=== PATIENT | male | born 1985 | race American Indian/Alaskan Native ===

== ENCOUNTER 2016-07-14 13:48 | Emergency (ER) | payer SELFPAY ==
[2016-07-14 15:02] VITALS: BP 127/92
--- NOTE | 2016-07-14 17:36 | Emergency Department Report ---
ED ENT HPI - General Chief complaint: Sore Throat Stated complaint: PAIN/YEAST TONGUE AREA/EXHAUSTION Time Seen by Provider: 07/14/16 17:21 Source: patient Mode of arrival: Ambulatory Limitations: No Limitations - History of Present Illness Initial comments: PT states 1 - 1.5 years ago, he was dx with a fungal infection on his tongue. PT states he was dx by a military technology specialist. PT states the specialist gave him a list of foods that he needs to eat and that he needs to avoid to detox the fungus. PT states the foods that he was given to eat are expensive and that he is working but his is having a hard time affording the foods. PT states his tongue irritation has been worsening and sometimes he has sore throat. PT states he feels very fatigued and is looking to get on disability until the fungal infection clears up. PT states he has good oral hygiene and he uses a tongue mold polisher. PT denies any PMH. MD complaint: other (tongue irritation ) -: Gradual, year(s) Location: tongue Quality: other (irritated ) Improves with: none Worsens with: none - Related Data Previous Rx's Medication Instructions Recorded Last Taken Type Nystatin [Nystatin SUSP] 5 ml PO QID 7 Days 07/14/16 Unknown Rx Allergies Allergy/AdvReac Type Severity Reaction Status Date / Time No Known Allergies Allergy Unverified 07/14/16 14:54 ED Dental HPI - General Chief complaint: Sore Throat Stated complaint: PAIN/YEAST TONGUE AREA/EXHAUSTION Time Seen by Provider: 07/14/16 17:21 Source: patient Mode of arrival: Ambulatory Limitations: No Limitations - Related Data Previous Rx's Medication Instructions Recorded Last Taken Type Nystatin [Nystatin SUSP] 5 ml PO QID 7 Days 07/14/16 Unknown Rx Allergies Allergy/AdvReac Type Severity Reaction Status Date / Time No Known Allergies Allergy Unverified 07/14/16 14:54 ED Review of Systems ROS: Stated complaint: PAIN/YEAST TONGUE AREA/EXHAUSTION Other details as noted in HPI Comment: All other systems reviewed and negative Constitutional: other (fatigue ). denies: chills, fever ENT: as per HPI Gastrointestinal: denies: vomiting Skin: denies: rash ED Past Medical Hx - Past Medical History Previous Medical History?: No Hx Hypertension: No Hx Diabetes: No Hx of Cancer: No - Surgical History Past Surgical History?: No - Social History Smoking Status: Never Smoker Substance Use Type: None - Medications Home Medications: Home Medications Medication Instructions Recorded Confirmed Last Taken Type Nystatin [Nystatin SUSP] 5 ml PO QID 7 Days 07/14/16 Unknown Rx ED Physical Exam - General Limitations: No Limitations General appearance: alert, in no apparent distress - Head Head exam: Present: atraumatic, normocephalic - Eye Eye exam: Present: normal appearance. Absent: conjunctival injection - ENT ENT exam: Present: normal orophraynx, mucous membranes moist, TM's normal bilaterally, normal external ear exam - Expanded ENT Exam Expanded Mouth exam: Present: other (glossitis ). Absent: drooling, trismus, tongue elevation Teeth exam: Present: normal inspection. Absent: gingival enlargement Throat exam: Positive: normal inspection, tonsillar erythema - Neck Neck exam: Present: normal inspection, full ROM. Absent: tenderness, meningismus, lymphadenopathy - Respiratory Respiratory exam: Absent: respiratory distress, wheezes - Extremities Exam Extremities exam: Present: normal inspection, full ROM - Back Exam Back exam: Present: normal inspection, full ROM - Neurological Exam Neurological exam: Present: alert, oriented X3, normal gait - Psychiatric Psychiatric exam: Present: normal affect, normal mood - Skin Skin exam: Present: warm, dry, intact, normal color ED Course Vital Signs 07/14/16 14:54 Temperature 98.4 F Pulse Rate 58 L Respiratory 18 Rate Blood Pressure 127/92 O2 Sat by Pulse 100 Oximetry - Pulse Oximetry Interpretation Digit-Finger Initial Pulse Oximetry Readin Actions Taken: none ED Medical Decision Making - Differential Diagnosis thrush, glositis Critical care attestation.: If time is entered above; I have spent that time in minutes in the direct care of this critically ill patient, excluding procedure time. ED Disposition Clinical Impression: Glossitis Disposition: DISCHARGED TO HOME OR SELFCARE Is pt being admited?: No Does the pt Need Aspirin: No Condition: Stable Instructions: Oral Candidiasis (ED) Additional Instructions: take a probiotic daily Referrals: PRIMARY CARE,MD [Primary Care Provider] - 3-5 Days [facility] [Outside] - 3-5 Days Forms: Work/School Release Form(ED) Time of Disposition: 17:45
== END 2016-07-14 17:54 | disposition home or self-care (01) ==
LOC: ED 13:48
DX: K14.0 Glossitis (principal); R53.83 Other fatigue
CPT/HCPCS: 99282

== ENCOUNTER 2017-09-16 17:41 | Emergency (ER) | payer SELFPAY ==
--- NOTE | 2017-09-16 21:38 | Emergency Department Report ---
- General Chief complaint: Skin/Abscess/Foreign Body Stated complaint: INSECT BITES Time Seen by Provider: 09/16/17 21:17 Source: patient Mode of arrival: Ambulatory Limitations: No Limitations - History of Present Illness Initial comments: This is a 32-year-old male nontoxic, well nourished in appearance, no acute signs of distress presents to the ED with c/o of redness and pain to right middle and index finger x1 month. Patient stated that he believes he was bitten by a spider but has not seen one. Patient denies any pus, drainage, fever, chills, joint redness, joint swelling, chest pain, shortness of breath, headache, stiff neck. Patient denies any allergies or significant past medical history. Denies any direct trauma. MD complaint: insect bite/sting -: month(s) (1) Severity: mild Severity scale (0 -10): 8 Quality: aching Consistency: constant Improves with: none Worsens with: none Associated symptoms: denies other symptoms Treatments Prior to Arrival: none - Related Data Previous Rx's Medication Instructions Recorded Last Taken Type Nystatin [Nystatin SUSP] 5 ml PO QID 7 Days ml 07/14/16 Unknown Rx Sulfamethoxazole/Trimethoprim 1 each PO BID #14 tablet 09/16/17 Unknown Rx [Bactrim DS TAB] Allergies Allergy/AdvReac Type Severity Reaction Status Date / Time No Known Allergies Allergy Verified 09/16/17 18:55 Abscess Boil HPI - HPI Chief Complaint: Skin/Abscess/Foreign Body Stated Complaint: INSECT BITES Time Seen by Provider: 09/16/17 21:17 Home Medications: Previous Rx's Medication Instructions Recorded Last Taken Type Nystatin [Nystatin SUSP] 5 ml PO QID 7 Days ml 07/14/16 Unknown Rx Sulfamethoxazole/Trimethoprim 1 each PO BID #14 tablet 09/16/17 Unknown Rx [Bactrim DS TAB] Allergies/Adverse Reactions: Allergies Allergy/AdvReac Type Severity Reaction Status Date / Time No Known Allergies Allergy Verified 09/16/17 18:55 ED Review of Systems ROS: Stated complaint: INSECT BITES Other details as noted in HPI Constitutional: denies: chills, fever Eyes: denies: eye pain, eye discharge, vision change ENT: denies: ear pain, throat pain Respiratory: denies: cough, shortness of breath, wheezing Cardiovascular: denies: chest pain, palpitations Endocrine: no symptoms reported Gastrointestinal: denies: abdominal pain, nausea, diarrhea Genitourinary: denies: urgency, dysuria Musculoskeletal: denies: back pain, joint swelling, arthralgia Skin: denies: rash, lesions Neurological: denies: headache, weakness, paresthesias Psychiatric: denies: anxiety, depression Hematological/Lymphatic: denies: easy bleeding, easy bruising ED Past Medical Hx - Past Medical History Hx Hypertension: No Hx Diabetes: No - Social History Smoking Status: Never Smoker Substance Use Type: None - Medications Home Medications: Home Medications Medication Instructions Recorded Confirmed Last Taken Type Nystatin [Nystatin SUSP] 5 ml PO QID 7 Days ml 07/14/16 Unknown Rx Sulfamethoxazole/Trimethoprim 1 each PO BID #14 tablet 09/16/17 Unknown Rx [Bactrim DS TAB] ED Physical Exam - General Limitations: No Limitations General appearance: alert, in no apparent distress - Head Head exam: Present: atraumatic, normocephalic - Eye Eye exam: Present: normal appearance - ENT ENT exam: Present: mucous membranes moist - Neck Neck exam: Present: normal inspection - Respiratory Respiratory exam: Present: normal lung sounds bilaterally. Absent: respiratory distress - Cardiovascular Cardiovascular Exam: Present: regular rate, normal rhythm. Absent: systolic murmur, diastolic murmur, rubs, gallop - GI/Abdominal GI/Abdominal exam: Present: soft, normal bowel sounds - Rectal Rectal exam: Present: deferred - Extremities Exam Extremities exam: Present: normal inspection, full ROM, tenderness, normal capillary refill. Absent: joint swelling - Expanded Upper Extremity Exam Right General: Present: normal inspection Hand Wrist exam: Present: normal inspection, full ROM, tenderness, other ( nodular swelling to middle and index finger, right. No straining cellulitis, pus or drainage. Nontender to touch.). Absent: swelling, abrasion, laceration , ecchymosis, deformity, crepidus, dislocation, erythema, amputation, nail avulsion, subungual hematoma Neuro motor exam: Present: wrist extension intact, thumb opposition intact, thumb IP flexion intact, thumb adduction intact, fingers 2-5 abduction intact Neurosensory exam: Present: 2-point discrimination, radial nerve intact, ulnar nerve intact, median nerve intact Vascular: Present: vascular compromise, normal capillary refill, radial pulse, brachial pulse, ulnar pulse - Back Exam Back exam: Present: normal inspection, full ROM - Neurological Exam Neurological exam: Present: alert, oriented X3 - Psychiatric Psychiatric exam: Present: normal affect, normal mood - Skin Skin exam: Present: warm, dry, intact, normal color. Absent: rash ED Course Vital Signs 09/16/17 18:55 Temperature 98.2 F Pulse Rate 56 L Respiratory 18 Rate Blood Pressure 134/94 O2 Sat by Pulse 98 Oximetry - Reevaluation(s) Reevaluation #1: 09/16/17 21:39 Patient is speaking in full sentences with no signs of distress noted. ED Medical Decision Making - Medical Decision Making 32-year-old male that presents with cellulitis versus Cutaneous warts. Patient was examined by me. Upon examination there is no abscess formation or joint swelling or joint redness. I will treat patient with Bactrim. I showed the patient that this may be warts and needs to be follow-up with a primary care doctor for removal. Patient was referred to Follow-up with a primary care doctor in 3-5 days or if symptoms worsen and continue return to emergency room as soon as possible. At time of discharge, the patient does not seem toxic or ill in appearance. No acute signs of distress noted. Patient agrees to discharge treatment plan of care. No further questions noted by the patient. Critical care attestation.: If time is entered above; I have spent that time in minutes in the direct care of this critically ill patient, excluding procedure time. ED Disposition Clinical Impression: Cutaneous wart Qualifiers: Viral wart type: unspecified viral wart Qualified Code(s): B07.9 - Viral wart, unspecified Cellulitis Qualifiers: Site of cellulitis: extremity Site of cellulitis of extremity: finger Laterality: right Qualified Code(s): L03.011 - Cellulitis of right finger Disposition: DC-01 TO HOME OR SELFCARE Is pt being admited?: No Does the pt Need Aspirin: No Condition: Stable Instructions: Cellulitis (ED) Additional Instructions: Follow-up with a primary care doctor in 3-5 days or if symptoms worsen and continue return to emergency room as soon as possible. Prescriptions: Sulfamethoxazole/Trimethoprim [Bactrim DS TAB] 1 each PO BID #14 tablet Referrals: CRISTINA SOLANO MD [Primary Care Provider] - 3-5 Days OPAL GONZALEZ MD [Staff Physician] - 3-5 Days [facility] [Outside] - 3-5 Days [facility] [Outside] - 3-5 Days Forms: Work/School Release Form(ED)
[2017-09-16 21:56] VITALS: BP 122/68
== END 2017-09-16 21:55 | disposition home or self-care (01) ==
LOC: ED 17:41
DX: L03.011 Cellulitis of right finger (principal); B07.9 Viral wart, unspecified
CPT/HCPCS: 99282

== ENCOUNTER 2019-02-17 09:39 | Emergency (ER) | payer SELFPAY ==
[2019-02-17 10:03] VITALS: BP 150/99
--- NOTE | 2019-02-17 12:58 | Emergency Department Report ---
Blank Doc - Documentation Documentation: Patient was placed in a room but left before I was able to get in to see the p atient.
== END 2019-02-17 12:58 | disposition left against medical advice (07) ==
LOC: ED 09:39
DX: M25.571 Pain in right ankle and joints of right foot (principal); Z53.21 Procedure and treatment not carried out due to patient leaving prior to being seen by health care provider

== ENCOUNTER 2019-02-19 11:24 | Emergency (ER) | payer SELFPAY ==
--- NOTE | 2019-02-19 11:47 | Event Note ---
ED Screening Note ED Screening Note: right ankle swelling that began a week ago states has chronic pain in the heel no fall or injury states had an injury to this ankle a few years ago no numbness or weakness ambulatory without difficulty no PMHx no allergies to meds
[2019-02-19 11:49] VITALS: BP 137/97
--- NOTE | 2019-02-19 11:51 | Emergency Department Report ---
Chief Complaint: Extremity Injury, Lower Stated Complaint: ANKLE PAIN Time Seen by Provider: 02/19/19 11:42 - HPI History of Present Illness: right ankle swelling that began a week ago states has chronic pain in the heel for "awhile" no fall or injury states had an injury to this ankle a few years ago no numbness or weakness ambulatory without difficulty pt states that he walks frequently daily no PMHx no allergies to meds on exam: no TTP of the right ankle, foot, or digits FROM of the right ankle, foot, and digits no edema present to the right knee, right lower leg, right ankle, right foot, or right toes no ankle joint laxity achiles tendon intact no calf tenderness no edema or erythema of the right leg neurovascularly intact pt is presenting with a non medical emergency at this time no signs of fracture, no signs of tendon/ligament injury, no signs of edema to represent a DVT or cellulitis examination of the right lower leg is normal initial vitals in triage with elevated blood pressure, repeated blood pressure and pressure is now stable discussed with pt about orthopedic shoe inserts and RICE therapy advised pt may use tylenol or ibuprofen for any discomfort. may use ice for 15 minutes at a time, rest, elevation of the leg. follow up with an orthopedic doctor and primary care doctor. return to the emergency room for any new or worsening symptoms. pt given list of community clinics - Exam Vital Signs: Vital Signs 02/19/19 11:42 Temperature 98.8 F Pulse Rate 59 L Respiratory 15 Rate Blood Pressure 154/104 O2 Sat by Pulse 100 Oximetry Vital Signs 02/19/19 02/19/19 11:32 11:42 Temperature 98.8 F Pulse Rate 59 L Respiratory 15 Rate Blood Pressure 154/104 Blood Pressure 137/97 [Right] O2 Sat by Pulse 100 Oximetry MSE screening note: Focused history and physical exam performed. ED Disposition for MSE Clinical Impression: Pain of right heel Disposition: Z-07 MED SCREENING EXAM-LEFT Is pt being admited?: No Does the pt Need Aspirin: No Condition: Stable Instructions: Arthralgia (ED), RICE Therapy (ED) Additional Instructions: may use tylenol or ibuprofen for any discomfort. may use ice for 15 minutes at a time, rest, elevation of the leg. follow up with an orthopedic doctor and primary care doctor. return to the emergency room for any new or worsening sympt oms. Referrals: JODIE LINDSAY MD [Staff Physician] - 2-3 Days [facility] [Outside] - 2-3 Days [facility] [Outside] - 2-3 Days Time of Disposition: 11:49 Print Language: ALBANIAN
== END 2019-02-19 11:50 | disposition left against medical advice (07) ==
LOC: ED 11:24
DX: M79.671 Pain in right foot (principal)